=== PATIENT | female | born 1985 | race African-American/Black ===

== ENCOUNTER 2023-10-04 03:44 | Outpatient (CLI) | payer MEDICAID | END 2023-10-04 23:59 | disposition critical access hospital (66) | LOC: EMS 03:44 | DX: R41.82 Altered mental status, unspecified (principal); F10.90 Alcohol use, unspecified, uncomplicated; F14.90 Cocaine use, unspecified, uncomplicated; F11.90 Opioid use, unspecified, uncomplicated | CPT/HCPCS: A0425; A0429; A0999 ==

== ENCOUNTER 2023-10-04 04:02 | Emergency (ER) | payer MEDICAID ==
--- NOTE | 2023-10-04 04:16 | ED Physician Documentation ---
History of Present Illness - Stated complaint Stated Complaint: AMS - Chief complaint Chief Complaint: General - History obtained from History obtained from: EMS - Additonal information Additional information: BIBA. HPI is provided by EMS; patient is angry and does not participate in HPI/ROS. Per EMS, patient was dropped off at [facility] where she was seeking treatment for opiate use. During intake, the patient reportedly was repeatedly falling asleep and was briefly argumentative, prompting ITA to reject the admission. Per EMS, [facility] felt the patient was too altered to allow her to simply leave the facility and thus they called 911. EMS reports that patient's alcohol level (by breathalyzer) was 171. Furthermore, EMS reports that the urine drug screen performed on site indicated presence of fentanyl, cocaine. EMS says that several pills were found in patient's clothing and these were confiscated by ITA. Fingerstick blood sugar 153 by EMS. On my first attempt at HPI/ROS, the patient is insisting she has to use the bathroom immediately and refuses to talk to me until she does so. She is helped to the bathroom by ED RN. Upon returning to the room, I reattempted HPI/ROS, at which time she is repeatedly demanding food. I explained to patient that I am the ED physician and I would need to do a physical exam and get some information from her so as to determine how best to meet her emergency medical needs. Despite this, she continues to refuse to talk to me and simply and repeatedly demands food. At one point, she tells me "just give me some food and then I will leave". She did allow a brief physical exam. PD PAST MEDICAL HISTORY - Past Medical History Past Medical History: No - Past Surgical History Past Surgical History: No - Allergies Allergies/Adverse Reactions: Allergies Allergy/AdvReac Type Severity Reaction Status Date / Time No Known Drug Allergies Allergy Verified 10/04/23 04:13 - Social History Does the pt smoke?: Yes Smoking Status: Current every day smoker Does the pt drink ETOH?: Yes Does the pt have substance abuse?: Yes Substance Use and Type: Cocaine/Crack, Other PD ED PE NORMAL - Vitals Vital signs reviewed: Yes - General General: Alert and oriented X 3 (awake, alert, drowsy. answers all of my questions with demand for food, providing no contributory information regarding HPI/ROS) - HEENT HEENT: PERRL, EOMI - Cardiac Cardiac: RRR, No murmur - Respiratory Respiratory: No respiratory distress, Clear bilaterally Results - Vitals Vitals: Vital Signs - 24 hr 10/04/23 10/04/23 04:07 07:32 Temperature 36.5 C Heart Rate 96 104 H Respiratory 16 18 Rate Blood Pressure 98/56 L 97/57 L O2 Saturation 98 100 Oxygen O2 Source Room air - Labs Labs: Laboratory Tests 10/04/23 10/04/23 04:13 04:14 Urine Color LIGHT YELLOW Urine Clarity CLEAR Urine pH 5.5 Ur Specific [place] <=1.005 Urine Protein NEGATIVE Urine Glucose (UA) NEGATIVE Urine Ketones NEGATIVE Urine Occult Blood MODERATE H Urine Nitrite NEGATIVE Urine Bilirubin NEGATIVE Urine Urobilinogen 0.2 (NORMAL) Ur Leukocyte Esterase NEGATIVE Urine RBC 0-5 Urine WBC 0-3 Ur Squamous Epith Cells FEW Squamous Urine Bacteria Rare Ur Microscopic Review INDICATED Urine Culture Comments NOT INDICATED Urine HCG, Qual NEGATIVE Urine Opiates Screen NEGATIVE Ur Buprenorphine Scrn NEGATIVE Ur Oxycodone Screen NEGATIVE Urine Methadone Screen NEGATIVE Ur Barbiturates Screen NEGATIVE Ur Tricyclics Screen NEGATIVE Ur Phencyclidine Scrn NEGATIVE Ur Amphetamine Screen NEGATIVE U Methamphetamines Scrn NEGATIVE U Benzodiazepines Scrn NEGATIVE Urine Cocaine Screen POSITIVE H U Cannabinoids Screen NEGATIVE Ur Drug Screen Comment CUTOFF CONC BELOW: PD Medical Decision Making - ED course Complexity details: reviewed results, considered differential, d/w patient ED course: At the time of my evaluation of patient, there are no elements of the HPI nor PE to suggest the need to hold patient against her will. Urine drug screen performed in this ED confirms presence of cocaine. EMS reported that fentanyl was also detected on urine drug screen performed at [facility]; note that the urine drug screen available in [facility] ED does not detect fentanyl. At end of my shift she is resting comfortably and in NAD. Discharged and prov ided contact information for [facility] so she can recontact them to inquire as to whether they will reinitiate the intake process Departure - Departure Disposition: 01 Home, Self Care Clinical Impression: Substance abuse Condition: Good Instructions: ED Drug Abuse General Comments: You can contact [facility] to see if they will reevaluate you for admission to their facility. My understanding is that their chief concern was that you were repeatedly falling asleep during the intake process and they were thus unable to complete the intake process. The contact information for [facility] is provided below. [facility] STABLIZATION [address] [facility] offers a monitored and safe setting for individuals withdrawing from alcohol and drugs, and counseling for individuals experiencing a mental health crisis. All services are provided in a 10-bed facility where intensive medical monitoring is required along with stabilization services. The goal of these services is to assess a clients mental health and substance use disorder related needs, and assist them in accessing the services they need to recover. Discharge Date/Time: 10/04/23 08:03
[2023-10-04 05:39] LABS: BILIRUBIN,URINE NEGATIVE (NEGATIVE); GLUCOSE, URINE (UA) NEGATIVE (NEGATIVE); KETONES,URINE (UA) NEGATIVE (NEGATIVE); LEUKOCYTE ESTERASE, URINE NEGATIVE (NEGATIVE); NITRITE,URINE NEGATIVE (NEGATIVE); OCCULT BLOOD,URINE MODERATE (NEGATIVE); PH,URINE 5.5 PH (5.0-7.5); PROTEIN,URINE NEGATIVE (NEGATIVE); UROBILINOGEN,URINE 0.2 (NORMAL) E.U./dL (NORMAL)
[2023-10-04 05:44] LABS: CLARITY,URINE CLEAR (CLEAR)
[2023-10-04 05:49] LABS: AMPHETAMINE SCREEN,URINE NEGATIVE (NEGATIVE); BARBITURATE SCREEN,UR NEGATIVE (NEGATIVE); BENZODIAZEPINES SCREEN, URINE NEGATIVE (NEGATIVE); BUPRENORPHINE SCREEN, URINE NEGATIVE (NEGATIVE); METHADONE SCREEN, URINE NEGATIVE (NEGATIVE); METHAMPHETAMINES SCREEN, URINE NEGATIVE (NEGATIVE); OPIATE SCREEN, URINE NEGATIVE (NEGATIVE); OXYCODONE SCREEN, URINE NEGATIVE (NEGATIVE); TRICYCLIC ANTIDEPRESSANT,URINE NEGATIVE (NEGATIVE)
[2023-10-04 05:50] LABS: COCAINE SCREEN URINE POSITIVE (NEGATIVE); THC CANNABINOID SCREEN, URINE NEGATIVE (NEGATIVE)
[2023-10-04 05:54] LABS: BACTERIA,URINE Rare /HPF (None Seen); RBC,URINE 0-5 /HPF (0-5); SQUAMOUS EPITHELIAL CELL,UR FEW Squamous (<= Few); WBC,URINE 0-3 /HPF (0-5)
[2023-10-04 06:07] LABS: HCG UR QUAL NEGATIVE
[2023-10-04 07:42] VITALS: BP 97/57; O2SAT 100
== END 2023-10-04 08:03 | disposition home or self-care (01) ==
LOC: EDBD → ED 04:02
DX: F19.10 Other psychoactive substance abuse, uncomplicated (principal); F17.200 Nicotine dependence, unspecified, uncomplicated
CPT/HCPCS: 80306; 81001; 81003; 81025; 87086; 99283